=== PATIENT | male | born 1995 | race Caucasian/White ===

== ENCOUNTER 2021-06-09 02:09 | Emergency (ER) | payer OTHER ==
[~2021-06-09] VITALS: Ht 172.7 cm; Wt 59.0 kg
[2021-06-09 02:13] VITALS: BP 127/68
[2021-06-09] MEDS ORDERED: TETRACAINE HCL 0.5% 4 ML OPHTH SOLN ONE (02:51)
[2021-06-09] MEDS ORDERED: FLUORESCEIN SODIUM 1 STRIP STRIP ONE (02:57)
[2021-06-09] MEDS ORDERED: FLUORESCEIN SODIUM 1 STRIP STRIP OP ONE (03:00)
[2021-06-09] MEDS ORDERED: TETRACAINE HCL 0.5% 4 ML OPHTH SOLN OP SCH (03:00)
[2021-06-09] MEDS ORDERED: ERYTHROMYCIN BASE 0.5% OPHTH OINT 1 GM TUBE ONE (03:09)
[2021-06-09] MEDS ORDERED: ERYT1OIN7 OP (03:11)
[2021-06-09] MEDS ORDERED: ACETAMINOPHEN WITH CODEINE 1 TAB TAB ONE (03:11)
[2021-06-09] MEDS ORDERED: ACETAMINOPHEN 500 MG TABLET ONE (03:11)
[2021-06-09] MEDS ORDERED: ACETAMINOPHEN 500 MG TABLET PO ONE (03:30)
[2021-06-09] MEDS ORDERED: IBUPROFEN 600 MG TABLET PO ONE (03:30)
[2021-06-09] MEDS ORDERED: ACETAMINOPHEN WITH CODEINE 1 TAB TAB PO ONE (03:30)
[2021-06-09] MEDS ORDERED: ERYTHROMYCIN BASE 0.5% OPHTH OINT 1 GM TUBE OU ONE (03:30)
== END 2021-06-09 03:20 | disposition home or self-care (01) ==
LOC: EDH 02:09
DX: H10.213 Acute toxic conjunctivitis, bilateral (principal); Z77.098 Contact with and (suspected) exposure to other hazardous, chiefly nonmedicinal, chemicals; Z79.1 Long term (current) use of non-steroidal anti-inflammatories (NSAID)